=== PATIENT | male | born 1990 | race Caucasian/White ===

== ENCOUNTER → 2018-07-01 | Outpatient (CLI) | payer OTHER ==
--- NOTE | 2018-07-01 09:01 | US ---
EXAMINATION TYPE: US venous doppler duplex LE BI DATE OF EXAM: 07/01/2018 7:41 AM COMPARISON: NONE CLINICAL HISTORY: 28-year-old male R10.30 lower abd pain, R52 pain unspecified. SIDE PERFORMED: Bilateral TECHNIQUE: The lower extremity deep venous system is examined utilizing real time linear array sonog terrance with graded compression, doppler sonography and color-flow sonography. FINDINGS: VESSELS IMAGED: External Iliac Vein (EIV) Common Femoral Vein Deep Femoral Vein Greater Saphenous Vein * Femoral Vein Popliteal Vein Small Saphenous Vein * Proximal Calf Veins (* superficial vessels) Right Leg: Negative for DVT Left Leg: Negative for DVT IMPRESSION: No evidence for DVT within the bilateral lower extremities imaged from the groin to the upper calves.
--- NOTE | 2018-07-01 09:13 | US ---
EXAMINATION TYPE: US groin RT DATE OF EXAM: 07/01/2018 COMPARISON: NONE CLINICAL HISTORY: 28-year-old male R10.30 lower abd pain, R52 pain unspecified. TECHNIQUE: Targeted sonographic examination at the site of right groin discomfort without and with Va lsalva. FINDINGS: Human Resources Benefits Specialist notes: Patient states he has intermittent pain at specific area right. No evident mass, fluid collection or hernia seen. Pelvis scanned as well, bladder not fully distended. No pelvic mass or abnormality noted by this ultrasound. IMPRESSION: No specific abnormality of the right groin identified by ultrasound. However, it should be noted that dynamic ultrasound for evaluation of inguinal hernia is a specialized exam and highly user-dependent . The typical landmarks when assessing for an inguinal hernia are not demonstrated on the provided im ages.
--- NOTE | 2018-07-01 09:34 | US ---
EXAMINATION TYPE: US scrotum with doppler. TECHNIQUE: Grayscale and color Doppler Duplex imaging performed of the scrotum. DATE OF EXAM: 07/01/2018 COMPARISON: NONE CLINICAL HISTORY: 28-year-old male R10.30 lower abd pain, R52 pain unspecified. FINDINGS: EXAM MEASUREMENTS: TESTICLES: Right Testicle: 4.4 x 2.2 x 3.0 cm Left Testicle: 4.4 x 2.3 x 2.8 cm EPIDIDYMIS HEAD: Right Epididymis: 1.1 cm Left Epididymis: 0.7 cm Doppler performed to assess for testicular vascularity; good bilateral color flow and waveforms are s een. There is no evidence of testicular torsion. Presence of hydroceles: no Presence of varicoceles: no IMPRESSION: Unremarkable sonographic examination of the testicles/scrotum.
== END | disposition home or self-care (01) ==
LOC: RADUSWWP 06:58
PROVIDERS: ATTEND Family Medicine
DX: R10.30 Lower abdominal pain, unspecified (principal)
CPT/HCPCS: 76870; 93970; 93975